=== PATIENT | male | born 1970 | race African-American/Black ===

== ENCOUNTER 2019-06-15 08:40 | Emergency (ER) | payer OTHER ==
[~2019-06-15] VITALS: Ht 177.8 cm; Wt 70.3 kg
[~2019-06-15 08:40] MED LIST: IBUPROFEN 200200 M1 OR
[2019-06-15] MEDS ORDERED: TRAMADOL 50 MG50 MG PO (09:58)
[2019-06-15] MEDS ORDERED: NORFLEX100 MG PO (09:58)
[2019-06-15] MEDS ORDERED: ACYCLOVIR 200200 MG PO (09:58)
[2019-06-15] MEDS ORDERED: PREDNISONE 20 M20 MG PO (09:58)
[2019-06-15 11:02] VITALS: BP 146/86
== END 2019-06-15 11:08 | disposition home or self-care (01) ==
LOC: ER 08:40
DX: S39.012A Strain of muscle, fascia and tendon of lower back, initial encounter (principal); Z98.890 Other specified postprocedural states; X50.0XXA Overexertion from strenuous movement or load, initial encounter; Y92.89 Other specified places as the place of occurrence of the external cause; Y93.89 Activity, other specified; Y99.8 Other external cause status